=== PATIENT | female | born 1930 | race Caucasian/White ===

== ENCOUNTER 2017-08-14 20:11 | Emergency (ER) | payer OTHER ==
[~2017-08-14 20:11] MED LIST: ARIC10TA PO; CALCCHW25 PO; EZET10 PO; HYDR12.56 PO; MEVA40TA6 PO; ONETAB17; OXYB5TAB33 PO; SALS500T PO
[2017-08-14 20:14] VITALS: BP 149/70; PULSE 82; RESP 18; TEMP 97.9; O2SAT 97
[2017-08-14 20:29] VITALS: BP 142/61; PULSE 72; RESP 20; O2SAT 95
[2017-08-14] MEDS ORDERED: crestor PO (20:42)
[2017-08-14] MEDS ORDERED: OXYB5TAB PO (20:42)
[2017-08-14] MEDS ORDERED: CALCCHW25 CHEW (20:42)
[2017-08-14] MEDS ORDERED: vitamin B12 PO (20:42)
[2017-08-14] MEDS ORDERED: namzaric PO (20:42)
[2017-08-14] MEDS ORDERED: ONE-TAB14 PO (20:42)
[2017-08-14] MEDS ORDERED: NAPR220C22 PO (20:42)
--- NOTE | 2017-08-14 20:42 | PD ---
HPI Chief Complaint: Head Injury Time Seen by Provider: 20:31 Travel History International Travel<30 days: No Contact w/Intl Traveler<30days: No Traveled to known affect area: No History of Present Illness HPI The patient is an 87 year old female who presents to the [facility] emergency department with a history of reportedly falling prior to arrival. The patient is brought in by her family. The patient was witnessed to be attempting to get out of the bathroom with her walker. She was turning a walker and lost her balance falling face forward onto the ground. The patient did not have any loss of consciousness. The patient did have a nosebleed most prominent from the right naris. The patient denies having any headache or neck pain currently. She does report having some nasal pain. The patient is noted to have swelling to the medial aspect of the forehead and overlying the nasal bridge. The patient's family is unsure when her tetanus was last updated. The patient does have a history of ulcers dementia. The patient is oriented to person, place, however not time or situation. On review of systems otherwise, the patient denies having any known recent fevers, cough, congestion, neck pain , chest pain, shortness of breath, abdominal pain, vomiting, diarrhea, urinary symptoms, or focal or new neurologic symptoms. Her primary care physician is . [facility] Past Medical History Narrative Medical The patient's past medical history is significant for Alzheimer's dementia, osteoarthritis, spinal stenosis, history of myelodysplastic syndrome, hyperlipidemia, vertigo Alzheimer's Disease: Yes (dementia) Arthritis: Yes Blood Disorders: Yes (MYELOPROLIFERATIVE DISORDER) High Cholesterol: Yes Hypertension: Yes Tetanus Vaccination: Unknown Menopausal: Yes Dilation and Curettage (D&C): Yes Past Surgical History Narrative Surgical The patient's past surgical history is significant for a prior , D&C. Appendectomy: Yes Section: Yes (X4) Social History Alcohol Use: No Tobacco Use: No Substance Use: No Allergies-Medications (Allergen,Severity, Reaction): Coded Allergies: No Known Allergies (Verified , 04/10/14) Reported Meds & Prescriptions Reported Meds & Active Scripts Active Reported [vitamin B12] 1 Tab PO DAILY One Daily Multivitamin (Multivitamin) 1 Each Tablet 1 Tab PO DAILY Aleve (Naproxen Sodium) 220 Mg Capsule 1 Tab PO DAILY [namzaric] 1 Tab PO DAILY Oxybutynin ER 24 HR (Oxybutynin Chloride) 5 Mg Tab 5 Mg PO DAILY [crestor] 1 Tab PO DAILY Calcium + D & K (Calcium-Vitamins D & K) 500-1,000-40 Mg-Unit-Mcg Chew 1 Tab CHEW Narrative Medication ZoilachapinChristi Review of Systems Except as stated in HPI: all other systems reviewed are Neg General / Constitutional: No: Fever Eyes: No: Visual changes HENT: Positive: Nosebleed, No: Headaches, Neck Stiffness, Neck Pain Cardiovascular: No: Chest Pain or Discomfort Respiratory: No: Shortness of Breath Gastrointestinal: No: Abdominal Pain Genitourinary: No: Dysuria Musculoskeletal: No: Pain Skin: No Rash Neurologic: Positive: Headache, No: Weakness, Focal Abnormalities, Change in Mentation, Slurred Speech, Sensory Disturbance Psychiatric: No: Depression Endocrine: No: Polydipsia Hematologic/Lymphatic: No: Easy Bruising Physical Exam Narrative General: The patient is a well-developed well-nourished female in no acute distress. Head and Neck exam: Head is normocephalic, with evidence of trauma to the face with swelling overlying the medial forehead associated with an abrasion, swelling overlying the nasal bridge with tenderness on palpation. No crepitus or step-off. No increase facial bone motility on palpation. Eyes: EOMI, pupils are equal round and reactive to light. Nose: Midline septum with dried blood present in the right naris more than the left. No evidence of septal hematoma. Mouth: Dentition unremarkable. Moist mucus membranes. Posterior oropharynx is not erythematous. No tonsillar hypertrophy. Uvula midline. Airway patent. Neck: No palpable lymphadenopathy. No nuchal rigidity. No thyromegaly. No spinous process tenderness to palpation. No step-off or crepitus. No erythema or ecchymosis. Cardiovascular: Regular rate and rhythm without murmurs, gallops, or rubs. No pulse deficit to the extremities on simultaneous auscultation and palpation of her radial artery. Lungs: Clear to auscultation bilaterally. No wheezes, rhonchi, or rales. Abdomen: Soft, without tenderness to palpation in all 4 quadrants of the abdomen. No guarding, rebound, or rigidity. Normal bowel sounds are audible. No tenderness on palpation of McBurney's point. Extremities: No clubbing or cyanosis. The patient has trace pedal edema bilateral lower extremities. 2+ pulses in all 4 extremities. No calf tenderness on palpation. Back: No spinous process tenderness to palpation. No costovertebral angle tenderness to palpation. Neurologic Exam: Cranial nerves 2-12 were intact on exam. Strength is 5/5 in all 4 extremities. No sensory deficits noted. Skin Exam: No rash noted. Intact skin that is warm and dry. The patient has a small skin tear noted along the dorsal aspect of the right hand. Data Data Last Documented VS Vital Signs Date Time Temp Pulse Resp B/P (MAP) Pulse Ox O2 Delivery O2 Flow Rate FiO2 08/14/17 22:43 59 18 126/59 (81) 95 Room Air 08/14/17 20:14 97.9 Orders Orders Electrocardiogram (08/14/17 20:33) Complete Blood Count With Diff (08/14/17 20:33) Basic Metabolic Panel (Bmp) (08/14/17 20:33) Prothrombin Time / Inr (Pt) (08/14/17 20:33) Act Partial Throm Time (Ptt) (08/14/17 20:33) Ct Brain W/O Iv Contrast(Rout) (08/14/17 20:33) Iv Access Insert/Monitor (08/14/17 20:33) Ecg Monitoring (08/14/17 20:33) Oximetry (08/14/17 20:33) Ct Cerv Spine W/O Contrast (08/14/17 20:33) Ct Facial Bones W/O Iv Cont (08/14/17 20:33) Cefazolin 2 Gm Premix (Ancef 2 Gm Premix (08/14/17 20:45) Lxmb-Vxm-Kyjqlj (Booster) Inj (Boostrix (08/14/17 20:45) Acetaminophen (Tylenol) (08/14/17 20:45) Labs Laboratory Tests Test 08/14/17 20:50 Prothrombin Time 11.6 SEC Prothromb Time International Ratio 1.1 RATIO Activated Partial Thromboplast Time 22.9 SEC Blood Urea Nitrogen 25 MG/DL Creatinine 1.34 MG/DL Random Glucose 187 MG/DL Calcium Level 8.7 MG/DL Sodium Level 143 MEQ/L Potassium Level 4.2 MEQ/L Chloride Level 111 MEQ/L Carbon Dioxide Level 25.2 MEQ/L Anion Gap 7 MEQ/L Estimat Glomerular Filtration Rate 37 ML/MIN MDM Medical Decision Making Medical Screen Exam Complete: Yes Emergency Medical Condition: Yes Medical Record Reviewed: Yes Interpretation(s) Last Impressions Maxillofacial CT 08/14/172032 Signed Impressions: Service Date/Time: Monday, August 14, 2017 20:46 - CONCLUSION: 1. Bilateral nasal bone fractures and nasal septal fracture. Christiano Nicolas MD Head CT 08/14/172032 Signed Impressions: Service Date/Time: Monday, August 14, 2017 20:46 - CONCLUSION: 1. Atrophy and white matter ischemic changes. No acute findings. Christiano Nicolas MD Cervical Spine CT 08/14/172032 Signed Impressions: Service Date/Time: Monday, August 14, 2017 21:05 - CONCLUSION: 1. Moderate to advanced degenerative disc disease. No acute findings. Christiano Nicolas MD Differential Diagnosis Intracranial trauma, versus cervical spine injury, versus facial bone injury Narrative Course During the course of the patients emergency department visit, the patients history, examination, and differential diagnosis were reviewed with the patient. The patient was placed on a electronic device monitor with oximetry and frequent blood pressure monitoring. The patient had IV access obtained and blood work sent for analysis. The patient was initially provided Ancef 2 g IV, ice pack to the face, tetanus update. The patients laboratory studies were reviewed and remarkable for basic metabolic profile is remarkable for chloride of 111, BUN 25, creatinine 1.34, glucose 187. The patient's CBC was a requested recollect in this patient who was difficult to obtain IV access in. The patient preferred to not have additional attempts at obtaining blood. The patient's last platelets done at this facility were 566 in May 2010. The patient has no continued active bleeding at this time. Radiology studies were reviewed and remarkable for a CT scan of the brain that shows atrophy and white matter ischemic changes, no acute abnormality. CT scan of the C-spine shows moderate to advanced degenerative changes, no other acute findings. CT scan of the facial bones shows bilateral nasal bone fractures and nasal septal fracture. No other acute abnormality. The patient will be given a copy of her CT scan of the facial bone findings. The patient will be given the name of the maxillofacial surgeon on-call for follow-up, Dr. Golden. She is instructed to call his office in the morning to make an appointment. She is instructed to avoid blowing her nose. The patient will be given a perception for pain medication, low-dose hydrocodone. The patient was instructed to try Tylenol for discomfort and if Tylenol does not relieve the discomfort then instead take hydrocodone. The patient is given a dose of Tylenol in the emergency department. The patient is instructed to continue to ice the area of swelling for possibly 10-15 minutes every couple of hours while awake over the next 24 hours and then 3-4 times per day after that. The patient is resting comfortably and feels better, is alert and in no distress. The patients results and examination findings were discussed with the patient. The repeat examination is unremarkable and benign. The history, exam, diagnostic testing, and current condition do not suggest any significant pathology to warrant further testing, continued ED treatment, admission, or surgical evaluation at this point. The vital signs have been stable. The patient does not have uncontrollable pain, intractable vomiting, or other significant symptoms. The patient's condition is stable and appropriate for discharge. The patient will pursue further outpatient evaluation with a primary care physician or other designated or consulting physician as indicated in the discharge instructions. The patient expressed understanding and was agreeable with this plan. Diagnosis Primary Impression: Nasal bone fracture Qualified Codes: S02.2XXA - Fracture of nasal bones, initial encounter for closed fracture Additional Impression: Fall Qualified Codes: W19.XXXA - Unspecified fall, initial encounter Referrals: Temo Golden DDS 3 days Patient Instructions: Fall Prevention for Older Adults (ED), General Instructions, Nasal Fracture (ED) Med/Other Pt SpecificInfo: Prescription(s) given Scripts Hydrocodone-Acetaminophen (Hydrocodone-Acetaminophen) 5-325 mg Tab 0.5 TAB PO Q6H Y for PAIN, #6 TAB 0 Refills Prov: Lorena Estrada MD 08/14/17 Disposition: 01 DISCHARGE HOME Condition: Stable Lorena Estrada MD Aug 14, 2017 20:42
[2017-08-14] MEDS ORDERED: ceFAZolin 2 GM PREMIX 50 ML IV ONE (20:45)
[2017-08-14] MEDS ORDERED: DIPHTH/TETANUS/ACEL PERTUSSIS (BOOSTER) 0.5 ML VIAL/PFS IM ONE (20:45)
[2017-08-14] MEDS ORDERED: ACETAMINOPHEN 325 MG TAB PO ONE (20:45)
--- NOTE | 2017-08-14 21:16 | RADRPT ---
EXAM DATE/TIME: 08/14/2017 20:46 [facility] COMPARISON: No previous studies available for comparison. INDICATIONS : Fall, cephalgia. RADIATION DOSE: 56.35 CTDIvol (mGy) MEDICAL HISTORY : Alzheimer's Hypertension. SURGICAL HISTORY : None. ENCOUNTER: Initial ACUITY: 1 day PAIN SCALE: 3/10 LOCATION: frontal TECHNIQUE: Multiple contiguous axial images were obtained of the head. Using automated exposure control and adj ustment of the mA and/or kV according to patient size, radiation dose was kept as low as reasonably a chievable to obtain optimal diagnostic quality images. DICOM format image data is available electro nically for review and comparison. FINDINGS: There is marked central and cortical atrophy with dilatation of ventricular and sulcal spaces. There is no parenchymal hemorrhage, acute infarction or mass lesion identified. There are no extra-axial fluid collections appreciated. The posterior fossa is unremarkable with midline fourth ventricle. T he portion of the orbits and paranasal sinuses visualized are unremarkable. CONCLUSION: 1. Atrophy and white matter ischemic changes. No acute findings. Christiano Nicolas MD on August 14, 2017 at 21:14 Board Certified Radiologist. This report was verified electronically.
--- NOTE | 2017-08-14 21:28 | RADRPT ---
EXAM DATE/TIME: 08/14/2017 20:46 [facility] COMPARISON: No previous studies available for comparison. INDICATIONS : Fall, nosebleed. RADIATION DOSE: 44.17 CTDIvol (mGy) MEDICAL HISTORY : Alzheimer's Hypertension. SURGICAL HISTORY : None. ENCOUNTER: Initial ACUITY: 1 day PAIN SCORE: 5/10 LOCATION: facial TECHNIQUE: Volumetric scanning of the facial bones was performed. Using automated exposure control and adjustme nt of the mA and/or kV according to patient size, radiation dose was kept as low as reasonably achiev able to obtain optimal diagnostic quality images. DICOM format image data is available electronicall y for review and comparison. FINDINGS: Bilateral mildly displaced nasal bone fractures present. Also nasal septal fracture. No other facial bone fractures. Small amount of fluid in left sphenoid sinus and right maxillary sinus. CONCLUSION: 1. Bilateral nasal bone fractures and nasal septal fracture. Christiano Nicolas MD on August 14, 2017 at 21:25 Board Certified Radiologist. This report was verified electronically.
--- NOTE | 2017-08-14 21:32 | RADRPT ---
EXAM DATE/TIME: 08/14/2017 21:05 [facility] COMPARISON: No previous studies available for comparison. INDICATIONS : Fall, neck pain. RADIATION DOSE: 24.51 CTDIvol (mGy) MEDICAL HISTORY : Alzheimer's Hypertension. SURGICAL HISTORY : None. ENCOUNTER: Initial ACUITY: 1 day PAIN SCALE: 3/10 LOCATION: Bilateral neck TECHNIQUE: Volumetric scanning of the cervical spine was performed. Multiplanar reconstructions in the sagittal, coronal and oblique axial planes were performed. Using automated exposure control and adjustment o f the mA and/or kV according to patient size, radiation dose was kept as low as reasonably achievable to obtain optimal diagnostic quality images. DICOM format image data is available electronically f or review and comparison. FINDINGS: There is moderate to advanced degenerative disc disease throughout the cervical spine. No acute fract ure or spondylolisthesis. Mild AP canal stenosis at C4-5. No prevertebral soft tissue swelling. CONCLUSION: 1. Moderate to advanced degenerative disc disease. No acute findings. Christiano Nicolas MD on August 14, 2017 at 21:29 Board Certified Radiologist. This report was verified electronically.
[2017-08-14 21:47] LABS: APTT (PATIENT) 22.9 SEC (24.3-30.1); INTERNATIONAL NORMALIZED RATIO 1.1 RATIO; PROTHROMBIN TIME - PATIENT 11.6 SEC (9.8-11.6)
[2017-08-14 21:54] LABS: BICARBONATE 25.2 MEQ/L (21.0-32.0); POTASSIUM 4.2 MEQ/L (3.5-5.1)
[2017-08-14 21:58] VITALS: BP 139/58; PULSE 67; RESP 18; O2SAT 96
[2017-08-14 22:43] VITALS: BP 126/59; PULSE 59; RESP 18; O2SAT 95
[2017-08-14] MEDS ORDERED: HYDR-3516 PO (23:28)
[2017-08-14 23:41] VITALS: BP 110/54
--- NOTE | 2017-08-15 15:26 | EKG ---
Date Performed: 08/14/2017 Time Performed: 21:56:45 PTAGE: 87 years EKG: Sinus rhythm WITH OCCASIONAL SUPRAVENTRICULAR PREMATURE COMPLEXES LOW QRS VOLTAGE IN PRECORDIAL LEADS INFERIOR MY OCARDIAL INFARCTION ANTEROSEPTAL MYOCARDIAL INFARCTION ABNORMAL ECG PREVIOUS TRACING : 06/02/2010 14.00 DOCTOR: Seamus Miller Interpretating Date/Time 08/15/2017 15:26:11
== END 2017-08-14 23:57 | disposition home or self-care (01) ==
LOC: NEPC 20:11
DX: S02.2XXA Fracture of nasal bones, initial encounter for closed fracture (principal); S09.90XA Unspecified injury of head, initial encounter; G30.9 Alzheimer's disease, unspecified; F02.80 Dementia in other diseases classified elsewhere, unspecified severity, without behavioral disturbance, psychotic disturbance, mood disturbance, and anxiety; C94.6 Myelodysplastic disease, not elsewhere classified; I10 Essential (primary) hypertension; I25.2 Old myocardial infarction; R94.31 Abnormal electrocardiogram [ECG] [EKG]; W18.30XA Fall on same level, unspecified, initial encounter; Z23 Encounter for immunization
CPT/HCPCS: 70450; 70486; 72125; 80048; 85610; 85730; 90471; 90715; 93005; 96365; 99285; J0690